=== PATIENT | female | born 1995 | race Two or more races ===

== ENCOUNTER 2025-07-24 16:15 | Emergency (ER) | payer MEDICAID, OTHER, SELFPAY ==
[~2025-07-24] VITALS: Ht 157.5 cm; Wt 47.1 kg
[2025-07-24] MEDS: KETOROLAC 60 MG/2 ML VIAL IM ONE (17:13)
[2025-07-24] MEDS ORDERED: METH-1164 PO (18:31)
[2025-07-24] MEDS ORDERED: NAPR-1405 PO (18:31)
[2025-07-24 18:37] VITALS: BP 118/75; TEMP 98.5; O2SAT 98
== END 2025-07-24 18:38 | disposition home or self-care (01) ==
LOC: M ED 16:15
DX: S39.012A Strain of muscle, fascia and tendon of lower back, initial encounter (principal); Y92.9 Unspecified place or not applicable; Y93.9 Activity, unspecified; Y99.0 Civilian activity done for income or pay; F90.9 Attention-deficit hyperactivity disorder, unspecified type; F41.9 Anxiety disorder, unspecified; F10.10 Alcohol abuse, uncomplicated; Z79.899 Other long term (current) drug therapy
CPT/HCPCS: 72110; 96372; 99283; J1885